=== PATIENT | male | born 1985 | race Caucasian/White ===

== ENCOUNTER 2020-07-13 12:23 | Emergency (ER) | payer SELFPAY ==
[2020-07-13] MEDS ORDERED: Morphine 4 MG/ML VIAL ONE (14:53)
[2020-07-13] MEDS ORDERED: Iopamidol-370 76% 500 ML 1 ML ONE (14:55)
== END 2020-07-13 17:02 | disposition home or self-care (01) ==
LOC: ERS 12:23
DX: L03.211 Cellulitis of face (principal); F17.210 Nicotine dependence, cigarettes, uncomplicated
CPT/HCPCS: 70487; 96374; J2270; Q9967